=== PATIENT | female | born 1970 | race Caucasian/White ===

== ENCOUNTER → 2022-01-25 | Day surgery (SDC) | payer BC ==
[2022-01-25 13:22] VITALS: BP 117/69
== END | disposition home or self-care (01) ==
LOC: SURG 13:08
PROVIDERS: ATTEND Anesthesiology
DX: M54.12 Radiculopathy, cervical region (principal); M19.012 Primary osteoarthritis, left shoulder; E11.9 Type 2 diabetes mellitus without complications; E78.5 Hyperlipidemia, unspecified; Z88.5 Allergy status to narcotic agent
CPT/HCPCS: 99214; G0463